=== PATIENT | female | born 1995 | race Caucasian/White ===

== ENCOUNTER 2016-07-26 17:00 | Emergency (ER) | payer BC ==
[2016-07-26 18:54] LABS: ASCORBIC ACID (UR NOT ORDER) NEG (NEG); BILIRUBIN, URINE NEGATIVE (NEG); ER URINALYSIS TAT 0 Hrs 09 Mins; KETONE, URINE NEGATIVE (NEG); LEUKOCYTE ESTERASE(NOT OR TRACE (NEG); NITRITE (URINE) NEG (NEG); WBC (NOT ORDERED) (RFLEX) 5 (0-5)
== END 2016-07-26 19:34 | disposition home or self-care (01) ==
LOC: ER 17:00
PROVIDERS: Nurse Practitioner
DX: N30.90 Cystitis, unspecified without hematuria (principal); R09.81 Nasal congestion; Z88.0 Allergy status to penicillin; Z88.8 Allergy status to other drugs, medicaments and biological substances; Z91.013 Allergy to seafood
CPT/HCPCS: 81001; 84703; 96372; 99283